=== PATIENT | female | born 1980 | race American Indian/Alaskan Native ===

== ENCOUNTER 2021-12-04 14:24 | Emergency (ER) | payer SELFPAY ==
--- NOTE | 2021-12-04 14:33 | EDM.PDOC ---
ED HPI GENERAL MEDICAL PROBLEM - General Chief Complaint: Diabetic Complaint Stated Complaint: AMBULANCE Time Seen by Provider: 12/04/21 14:33 Source of Information: Reports: Patient, EMS, RN, RN Notes Reviewed History Limitations: Reports: No Limitations - History of Present Illness INITIAL COMMENTS - FREE TEXT/NARRATIVE: Pt presents to ED via [facility] with c/o high blood sugars with Hx of uncontrolled DM which was untreated x8 years. Pt reports increased fatigue and dry mouth. Pt is currently in an inpatient drug treatment center. She went to [facility] 12/02/21 for a physical and to have her medications restarted. Pt states that she has become increasingly tired throughout the day. She c/o hand and foot pain due to her diabetic neuropathy. Pt claims her blood sugar was 495 earlier today. Pt admits she hasn't checked her blood sugars for 8 years. Onset: Unknown/Unsure Duration: Chronic Location: Reports: Generalized Quality: Reports: Same as Previous Episode Severity: Severe Improves with: Reports: None Worsens with: Reports: None Associated Symptoms: Reports: No Other Symptoms - Related Data Allergies Allergy/AdvReac Type Severity Reaction Status Date / Time acetaminophen Allergy Cannot Verified 12/04/21 14:43 [From Tylenol-Codeine] Remember codeine Allergy Cannot Verified 12/04/21 14:43 [From Tylenol-Codeine] Remember cyclobenzaprine Allergy Cannot Verified 12/04/21 14:43 Remember ibuprofen Allergy Cannot Verified 12/04/21 14:43 Remember ketorolac [From Toradol] Allergy Cannot Verified 12/04/21 14:43 Remember tramadol Allergy Cannot Verified 12/04/21 14:43 Remember Home Meds: Home Meds Empagliflozin [Jardiance] 12/04/21 [History] Insulin Aspart [NovoLOG] 300 unit .XX 12/04/21 [History] Insulin Detemir [Levemir Flextouch] 12/04/21 [History] Melatonin 5 mg PO 12/04/21 [History] Multivitamin with Iron [Multivitamins with Iron] 12/04/21 [History] Propranolol [Inderal] 12/04/21 [History] Simvastatin 12/04/21 [History] buPROPion HCL [Bupropion HCl Sr] 12/04/21 [History] lisinopriL [Lisinopril] 12/04/21 [History] metFORMIN [Glucophage XR] 12/04/21 [History] Past Medical History Cardiovascular History: Reports: Hypertension Psychiatric History: Reports: Addiction Endocrine/Metabolic History: Reports: Diabetes, Type II, Obesity/BMI 30+ Social & Family History - Family History Family Medical History: Unobtainable - Living Situation & Occupation Living situation: Reports: Other (In substance treatment program as of 12/04/21.) ED ROS GENERAL - Review of Systems Review Of Systems: Comprehensive ROS is negative, except as noted in HPI. ED EXAM GENERAL NO PERIP PULSE - Physical Exam Exam: See Below Exam Limited By: No Limitations General Appearance: Alert, WD/WN, No Apparent Distress, Obese Eye Exam: Bilateral Eye: Normal Inspection Nose: Normal Inspection Throat/Mouth: Normal Lips, Normal Voice, No Airway Compromise Head: Atraumatic, Normocephalic Neck: Normal Inspection Respiratory/Chest: No Respiratory Distress, Lungs Clear, Normal Breath Sounds, No Accessory Muscle Use, Chest Non-Tender Cardiovascular: Regular Rate, Rhythm GI/Abdominal: Normal Bowel Sounds, Soft, Non-Tender Back Exam: Normal Inspection Extremities: Normal Inspection Neurological: Alert, Oriented, No Motor/Sensory Deficits Psychiatric: Normal Mood Skin Exam: Warm, Dry, Intact, Normal Color, No Rash Course - Vital Signs Last Recorded V/S: Last Vital Signs Temp 97.9 F 12/04/21 14:55 Pulse 89 12/04/21 14:55 Resp 20 12/04/21 14:55 BP 128/90 12/04/21 14:55 Pulse Ox 97 12/04/21 14:55 - Orders/Labs/Meds Orders: Active Orders 24 hr Category Date Time Status Blood Glucose Check, Bedside [RC] ONETIME Care 12/04/21 14:33 Active Dextrose 50% in Water Med 12/04/21 15:34 Active 50 ml IVPUSH Q15M PRN Glucagon,Human Recombinant [GlucaGen] Med 12/04/21 15:34 Active 1 mg IM Q15M PRN Medication Orders Dextrose/Water (50% Dextrose In Water 50 Ml Syringe) 50 ml IVPUSH Q15M PRN PRN Reason: Hypoglycemia Glucagon (Glucagon,Human Recombinant 1 Mg Vial) 1 mg IM Q15M PRN PRN Reason: Hypoglycemia Labs: Laboratory Tests 12/04/21 12/04/21 12/04/21 Range/Units 14:40 14:40 14:40 WBC (5.0-10.0) 10^3/uL RBC (4.2-5.4) 10^6/uL Hgb (12.0-16.0) g/dL Hct (37.0-47.0) % MCV (80-100) fL MCH (27.0-34.0) pg MCHC (33.0-35.0) g/dL Plt Count (150-450) 10^3/uL Neut % (Auto) (42.2-75.2) % Lymph % (Auto) (20.5-50.1) % [place] % (Auto) (2-8) % Eos % (Auto) (1.0-3.0) % Baso % (Auto) (0.0-1.0) % VBG pH (7.31-7.41) VBG pCO2 (41-51) mmHg VBG pO2 (35-42) mmHg VBG HCO3 (19-25) mmol/l VBG O2 Saturation (60-80) % VBG Base Excess ((-2)-(+3)) mmol/l O2 Delivery Device Sodium (136-145) mmol/L Potassium (3.5-5.1) mmol/L Chloride (98-107) mmol/L Carbon Dioxide (21-32) mmol/L Anion Gap (7-13) mEq/L BUN (7-18) mg/dL Creatinine (0.55-1.02) mg/dL Est Cr Clr Drug Dosing mL/min Estimated GFR (MDRD) BUN/Creatinine Ratio (No establ ref range) Glucose (70-99) mg/dL POC Glucose (70-99) mg/dL Hemoglobin A1c (<5.7) % Calcium (8.5-10.1) mg/dL Total Bilirubin (0.2-1.0) mg/dL AST (15-37) U/L ALT (14-59) U/L Alkaline Phosphatase (46-116) U/L Total Protein (6.4-8.2) g/dL Albumin (3.4-5.0) g/dL Globulin Albumin/Globulin Ratio Urine Color Yellow (YELLOW) Urine Appearance Clear (CLEAR) Urine pH 6.0 (5.0-9.0) Ur Specific [place] 1.015 (1.005-1.030) Urine Protein Negative (NEGATIVE) Urine Glucose (UA) 500 H (NEGATIVE) Urine Ketones Negative (NEGATIVE) Urine Occult Blood Negative (NEGATIVE) Urine Nitrite Negative (NEGATIVE) Urine Bilirubin Negative (NEGATIVE) Urine Urobilinogen 0.2 (0.2-1.0) mg/dL Ur Leukocyte Esterase Negative (NEGATIVE) Urine HCG, Qual Negative Urine Opiates Screen Negative (NEGATIVE) Ur Oxycodone Screen Negative (NEGATIVE) Urine Methadone Screen Negative (NEGATIVE) Ur Barbiturates Screen Negative (NEGATIVE) U Tricyclic Antidepress Negative (NEGATIVE) Ur Phencyclidine Scrn Negative (NEGATIVE) Ur Amphetamine Screen Negative (NEGATIVE) U Methamphetamines Scrn Negative (NEGATIVE) Urine MDMA Screen Negative (NEGATIVE) U Benzodiazepines Scrn Negative (NEGATIVE) Urine Cocaine Screen Negative (NEGATIVE) U Marijuana (THC) Screen Positive H (NEGATIVE) Ethyl Alcohol (0) mg/dL Ketones 12/04/21 12/04/21 12/04/21 Range/Units 14:43 14:59 14:59 WBC 8.6 (5.0-10.0) 10^3/uL RBC 5.33 (4.2-5.4) 10^6/uL Hgb 14.1 (12.0-16.0) g/dL Hct 44.0 (37.0-47.0) % MCV 82.6 (80-100) fL MCH 26.5 L (27.0-34.0) pg MCHC 32.0 L (33.0-35.0) g/dL Plt Count 352 (150-450) 10^3/uL Neut % (Auto) 69.3 (42.2-75.2) % Lymph % (Auto) 24.8 (20.5-50.1) % [place] % (Auto) 4.9 (2-8) % Eos % (Auto) 0.8 L (1.0-3.0) % Baso % (Auto) 0.2 (0.0-1.0) % VBG pH 7.41 (7.31-7.41) VBG pCO2 43 (41-51) mmHg VBG pO2 34 L (35-42) mmHg VBG HCO3 27 H (19-25) mmol/l VBG O2 Saturation 61 (60-80) % VBG Base Excess 2.2 ((-2)-(+3)) mmol/l O2 Delivery Device Room air Sodium 138 (136-145) mmol/L Potassium 4.1 (3.5-5.1) mmol/L Chloride 100 (98-107) mmol/L Carbon Dioxide 27 (21-32) mmol/L Anion Gap 15.1 H (7-13) mEq/L BUN 12 (7-18) mg/dL Creatinine 0.74 (0.55-1.02) mg/dL Est Cr Clr Drug Dosing 98.27 mL/min Estimated GFR (MDRD) > 60 BUN/Creatinine Ratio 16.2 (No establ ref range) Glucose 417 H* (70-99) mg/dL POC Glucose (70-99) mg/dL Hemoglobin A1c (<5.7) % Calcium 8.4 L (8.5-10.1) mg/dL Total Bilirubin 0.2 (0.2-1.0) mg/dL AST 5 L (15-37) U/L ALT 21 (14-59) U/L Alkaline Phosphatase 164 H (46-116) U/L Total Protein 7.8 (6.4-8.2) g/dL Albumin 3.3 L (3.4-5.0) g/dL Globulin 4.5 Albumin/Globulin Ratio 0.73 Urine Color (YELLOW) Urine Appearance (CLEAR) Urine pH (5.0-9.0) Ur Specific [place] (1.005-1.030) Urine Protein (NEGATIVE) Urine Glucose (UA) (NEGATIVE) Urine Ketones (NEGATIVE) Urine Occult Blood (NEGATIVE) Urine Nitrite (NEGATIVE) Urine Bilirubin (NEGATIVE) Urine Urobilinogen (0.2-1.0) mg/dL Ur Leukocyte Esterase (NEGATIVE) Urine HCG, Qual Urine Opiates Screen (NEGATIVE) Ur Oxycodone Screen (NEGATIVE) Urine Methadone Screen (NEGATIVE) Ur Barbiturates Screen (NEGATIVE) U Tricyclic Antidepress (NEGATIVE) Ur Phencyclidine Scrn (NEGATIVE) Ur Amphetamine Screen (NEGATIVE) U Methamphetamines Scrn (NEGATIVE) Urine MDMA Screen (NEGATIVE) U Benzodiazepines Scrn (NEGATIVE) Urine Cocaine Screen (NEGATIVE) U Marijuana (THC) Screen (NEGATIVE) Ethyl Alcohol < 3 (0) mg/dL Ketones Negative 12/04/21 12/04/21 Range/Units 14:59 15:08 WBC (5.0-10.0) 10^3/uL RBC (4.2-5.4) 10^6/uL Hgb (12.0-16.0) g/dL Hct (37.0-47.0) % MCV (80-100) fL MCH (27.0-34.0) pg MCHC (33.0-35.0) g/dL Plt Count (150-450) 10^3/uL Neut % (Auto) (42.2-75.2) % Lymph % (Auto) (20.5-50.1) % [place] % (Auto) (2-8) % Eos % (Auto) (1.0-3.0) % Baso % (Auto) (0.0-1.0) % VBG pH (7.31-7.41) VBG pCO2 (41-51) mmHg VBG pO2 (35-42) mmHg VBG HCO3 (19-25) mmol/l VBG O2 Saturation (60-80) % VBG Base Excess ((-2)-(+3)) mmol/l O2 Delivery Device Sodium (136-145) mmol/L Potassium (3.5-5.1) mmol/L Chloride (98-107) mmol/L Carbon Dioxide (21-32) mmol/L Anion Gap (7-13) mEq/L BUN (7-18) mg/dL Creatinine (0.55-1.02) mg/dL Est Cr Clr Drug Dosing mL/min Estimated GFR (MDRD) BUN/Creatinine Ratio (No establ ref range) Glucose (70-99) mg/dL POC Glucose 395 H (70-99) mg/dL Hemoglobin A1c 12.3 H (<5.7) % Calcium (8.5-10.1) mg/dL Total Bilirubin (0.2-1.0) mg/dL AST (15-37) U/L ALT (14-59) U/L Alkaline Phosphatase (46-116) U/L Total Protein (6.4-8.2) g/dL Albumin (3.4-5.0) g/dL Globulin Albumin/Globulin Ratio Urine Color (YELLOW) Urine Appearance (CLEAR) Urine pH (5.0-9.0) Ur Specific [place] (1.005-1.030) Urine Protein (NEGATIVE) Urine Glucose (UA) (NEGATIVE) Urine Ketones (NEGATIVE) Urine Occult Blood (NEGATIVE) Urine Nitrite (NEGATIVE) Urine Bilirubin (NEGATIVE) Urine Urobilinogen (0.2-1.0) mg/dL Ur Leukocyte Esterase (NEGATIVE) Urine HCG, Qual Urine Opiates Screen (NEGATIVE) Ur Oxycodone Screen (NEGATIVE) Urine Methadone Screen (NEGATIVE) Ur Barbiturates Screen (NEGATIVE) U Tricyclic Antidepress (NEGATIVE) Ur Phencyclidine Scrn (NEGATIVE) Ur Amphetamine Screen (NEGATIVE) U Methamphetamines Scrn (NEGATIVE) Urine MDMA Screen (NEGATIVE) U Benzodiazepines Scrn (NEGATIVE) Urine Cocaine Screen (NEGATIVE) U Marijuana (THC) Screen (NEGATIVE) Ethyl Alcohol (0) mg/dL Ketones Meds: Medications Generic Name Dose Route Start Last Admin Trade Name Freq PRN Reason Stop Dose Admin Dextrose/Water 50 ml 12/04/21 15:34 50% Dextrose In Water 50 Ml Syringe IVPUSH Q15M PRN Hypoglycemia Glucagon 1 mg 12/04/21 15:34 Glucagon,Human Recombinant 1 Mg Vial IM Q15M PRN Hypoglycemia Discontinued Medications Generic Name Dose Route Start Last Admin Trade Name Freq PRN Reason Stop Dose Admin Insulin Human Regular 10 unit 12/04/21 15:34 Insulin Regular, Human 100 Units/Ml 3 Ml Vial SUBCUT 12/04/21 15:35 ONETIME ONE - Re-Assessments/Exams Free Text/Narrative Re-Assessment/Exam: 12/04/21 15:41 Pt receives Insulin Reg. 10U SQ, then states she is leaving to go back to rehab because she isn't getting anything for her pain. Of note, the pt did not initially present with c/o pain. She did later mention that she has peripheral neuropathy. She also claims to be allergic to all non-narcotic pain medications. Departure - Departure Time of Disposition: 15:44 (d/c back to rehab unit) Disposition: Home, Self-Care 01 Condition: Fair Clinical Impression: Diabetic peripheral neuropathy Uncontrolled type 2 diabetes mellitus Qualifiers: Glycemic state: with hyperglycemia Qualified Code(s): E11.65 - Type 2 diabetes mellitus with hyperglycemia - Discharge Information *PRESCRIPTION DRUG MONITORING PROGRAM REVIEWED*: Not Applicable *COPY OF PRESCRIPTION DRUG MONITORING REPORT IN PATIENT ZANA: Not Applicable Instructions: Type 2 Diabetes Mellitus, Self-Care, Adult, Diabetic Neuropathy, Hyperglycemia, [id number] Forms: ED Department Discharge Additional Instructions: Take your insulin and all other medications exactly as prescribed. Follow up at [facility] in one week for diabetic management. Continue with rehabilitation as planned. Sepsis Event Note (ED) - Focused Exam Vital Signs: Vital Signs Temp Pulse Resp BP Pulse Ox 12/04/21 14:55 97.9 F 89 20 128/90 97 - My Orders Last 24 Hours: My Active Orders 12/04/21 14:33 Blood Glucose Check, Bedside [RC] ONETIME 12/04/21 15:34 Dextrose 50% in Water 50 ml IVPUSH Q15M PRN Glucagon,Human Recombinant [GlucaGen] 1 mg IM Q15M PRN - Assessment/Plan Last 24 Hours: My Active Orders 12/04/21 14:33 Blood Glucose Check, Bedside [RC] ONETIME 12/04/21 15:34 Dextrose 50% in Water 50 ml IVPUSH Q15M PRN Glucagon,Human Recombinant [GlucaGen] 1 mg IM Q15M PRN
[2021-12-04 15:07] LABS: BASE EXCESS VENOUS 2.2 mmol/l ((-2)-(+3)); BICARBONATE,VENOUS 27 mmol/l (19-25); O2 DELIVERY DEVICE ROOM AIR; O2 SATURATION VENOUS 61 % (60-80); PCO2 VENOUS 43 mmHg (41-51); PH,VENOUS 7.41 (7.31-7.41); PO2 VENOUS 34 mmHg (35-42)
[2021-12-04 15:27] LABS: HEMOGLOBIN A1C 12.3 % (<5.7)
[2021-12-04 15:28] LABS: ANION GAP 15.1 mEq/L (7-13); CHLORIDE,CL 100 mmol/L (98-107); SODIUM,NA 138 mmol/L (136-145)
[2021-12-04] MEDS ORDERED: 50% Dextrose in Water 50 ML Syringe IVPUSH PRN (15:34)
[2021-12-04] MEDS ORDERED: Glucagon,Human Recombinant 1 MG Vial IM PRN (15:34)
[2021-12-04] MEDS ORDERED: Insulin Regular, Human 100 Units/ML 3 ML Vial SUBCUT ONE (15:34)
[2021-12-04 15:35] LABS: AMPHETAMINES,URINE NEGATIVE (NEGATIVE); BARBITURATES,URINE NEGATIVE (NEGATIVE); BENZODIAZEPINE,URINE NEGATIVE (NEGATIVE); MDMA (ECSTASY), URINE NEGATIVE (NEGATIVE); METHADONE,URINE NEGATIVE (NEGATIVE); METHAMPHETAMINES,URINE NEGATIVE (NEGATIVE); OPIATES,URINE NEGATIVE (NEGATIVE); OXYCODONE,URINE NEGATIVE (NEGATIVE); PHENCYCLIDINE,URINE NEGATIVE (NEGATIVE); TCA,URINE NEGATIVE (NEGATIVE)
== END 2021-12-04 15:44 | disposition home or self-care (01) ==
LOC: DL.ED 14:24
DX: E11.65 Type 2 diabetes mellitus with hyperglycemia (principal); E11.42 Type 2 diabetes mellitus with diabetic polyneuropathy; I10 Essential (primary) hypertension; E66.9 Obesity, unspecified; Z68.31 Body mass index [BMI] 31.0-31.9, adult; Z88.5 Allergy status to narcotic agent; Z88.8 Allergy status to other drugs, medicaments and biological substances; Z79.4 Long term (current) use of insulin
CPT/HCPCS: 36415; 80053; 80305; 80307; 81003; 81025; 82009; 82803; 82947; 83036; 85025; 99285; J1815

== ENCOUNTER 2021-12-08 20:16 | Emergency (ER) | payer SELFPAY | END 2021-12-08 21:57 | disposition left against medical advice (07) | LOC: DL.ED 20:16 | DX: Z53.21 Procedure and treatment not carried out due to patient leaving prior to being seen by health care provider (principal) ==

== ENCOUNTER 2021-12-24 21:04 | Emergency (ER) | payer SELFPAY | END 2021-12-24 22:00 | disposition home or self-care (01) | LOC: DL.ED 21:04 | DX: R07.81 Pleurodynia (principal); I10 Essential (primary) hypertension; E11.9 Type 2 diabetes mellitus without complications; E66.9 Obesity, unspecified; Z68.31 Body mass index [BMI] 31.0-31.9, adult; Z88.5 Allergy status to narcotic agent; Z88.8 Allergy status to other drugs, medicaments and biological substances; Z79.4 Long term (current) use of insulin; Z79.899 Other long term (current) drug therapy | CPT/HCPCS: 71101-RT; 99283-25 ==

== ENCOUNTER 2022-04-05 13:02 | Inpatient (IN) | payer BC, MEDICAID ==
[2022-04-05] MEDS: Sodium Chloride 0.9% 10 ML Syringe FLUSH PRN ×2 (14:10→14:56)
[2022-04-05 14:24] LABS: ANION GAP 15.8 mEq/L (7-13); CHLORIDE,CL 98 mmol/L (98-107); SODIUM,NA 133 mmol/L (136-145)
[2022-04-05 14:29] LABS: MDMA (ECSTASY), URINE NEGATIVE (NEGATIVE); METHAMPHETAMINES,URINE POSITIVE (NEGATIVE)
[2022-04-05 14:30] LABS: AMPHETAMINES,URINE POSITIVE (NEGATIVE); BARBITURATES,URINE NEGATIVE (NEGATIVE); BENZODIAZEPINE,URINE NEGATIVE (NEGATIVE); METHADONE,URINE NEGATIVE (NEGATIVE); OPIATES,URINE NEGATIVE (NEGATIVE); OXYCODONE,URINE NEGATIVE (NEGATIVE); PHENCYCLIDINE,URINE NEGATIVE (NEGATIVE); TCA,URINE NEGATIVE (NEGATIVE)
[2022-04-05] MEDS ORDERED: Sodium Chloride 0.9% 1,000 ML IV ONE ×2 (14:32→16:45)
[2022-04-05] MEDS ORDERED: Iopamidol 612 MG/ML 100 ML Bottle IVPUSH ONE (14:42)
[2022-04-05 17:04] LABS: CORONAVIRUS COVID-19 NAA NEGATIVE (NEGATIVE)
[2022-04-05] MEDS ORDERED: Ketorolac 30 MG/ML SDV IVPUSH ONE (17:40)
[2022-04-05] MEDS ORDERED: Piperacillin/Tazobactam 3.375 GM in Sodium Chloride 0.9% 100 ML IV ONE (17:51)
[2022-04-05] MEDS ORDERED: Bisacodyl 5 MG Tab PO PRN (19:50)
[2022-04-05] MEDS ORDERED: HYDROmorphone 0.5 MG/0.5 ML Syringe IVPUSH PRN (19:50)
[2022-04-05] MEDS ORDERED: Polyethylene Glycol 3350 Powder 17 GM Packet PO PRN (19:50)
[2022-04-05] MEDS ORDERED: Docusate Sodium 100 MG Cap PO PRN (19:50)
[2022-04-05] MEDS ORDERED: Ibuprofen 600 MG Tab PO PRN (19:50)
[2022-04-05] MEDS ORDERED: Zolpidem 5 MG Tab PO PRN (19:50)
[2022-04-05] MEDS ORDERED: Magnesium Hydroxide 400 MG/5 ML Susp 30 ML Cup PO PRN (19:50)
[2022-04-05] MEDS ORDERED: guaiFENesin/Dextromethorphan 100-10 MG/5 ML Soln 5 ML Cup PO PRN (19:56)
[2022-04-05] MEDS ORDERED: hydrALAZINE 20 MG/ML SDV IVPUSH PRN (20:12)
[2022-04-05] MEDS ORDERED: Metoprolol Tartrate 5 MG/5 ML SDV IVPUSH PRN (20:12)
[2022-04-05] MEDS: Ondansetron 4 MG/2 ML SDV IVPUSH PRN (20:19)
[2022-04-05] MEDS ORDERED: LORazepam 2 MG/ML SDV IVPUSH PRN (20:27)
[2022-04-05] MEDS ORDERED: Flumazenil 0.1 MG/ML 5 ML MDV IVPUSH PRN (20:27)
[2022-04-05] MEDS: HYDROmorphone 0.5 MG/0.5 ML Syringe IVPUSH PRN (20:59)
[2022-04-05] MEDS: Gabapentin 400 MG Cap PO SCH (21:03)
[2022-04-05] MEDS ORDERED: 50% Dextrose in Water 50 ML Syringe IVPUSH PRN (21:56)
[2022-04-05] MEDS ORDERED: Glucagon,Human Recombinant 1 MG Vial IM PRN (21:56)
[2022-04-05] MEDS: Ketorolac 30 MG/ML SDV IVPUSH PRN (23:42)
[2022-04-05] MEDS: Piperacillin/Tazobactam 3.375 GM in Sodium Chloride 0.9% 100 ML IV SCH (23:42)
[2022-04-05] MEDS ORDERED: Sodium Chloride 0.9% 1,000 ML IV SCH (23:59)
[2022-04-06] MEDS: Ondansetron 4 MG/2 ML SDV IVPUSH PRN (03:39)
[2022-04-06] MEDS: HYDROmorphone 0.5 MG/0.5 ML Syringe IVPUSH PRN ×4 (03:42→17:43)
[2022-04-06] MEDS: Piperacillin/Tazobactam 3.375 GM in Sodium Chloride 0.9% 100 ML IV SCH ×4 (06:41→23:48)
[2022-04-06 07:13] LABS: ANION GAP 11.6 mEq/L (7-13); CHLORIDE,CL 105 mmol/L (98-107); SODIUM,NA 138 mmol/L (136-145)
[2022-04-06] MEDS ORDERED: BUPROPION HCL 200 MG PO SCH (09:00)
[2022-04-06] MEDS: Gabapentin 400 MG Cap PO SCH ×3 (09:25→20:43)
[2022-04-06] MEDS: Enoxaparin 40 MG/0.4 ML Syringe SUBCUT SCH (09:25)
[2022-04-06] MEDS: Multivitamin Tab PO SCH (09:25)
[2022-04-06] MEDS: Propranolol 10 MG Tab PO SCH (09:26)
[2022-04-06] MEDS: Insulin Lispro 100 Units/ML 3 ML Vial SUBCUT SCH ×3 (09:35→17:50)
[2022-04-06] MEDS ORDERED: [UNRECOGNIZED DRUG - REMARK] PO PRN (09:38)
[2022-04-06] MEDS: Ketorolac 30 MG/ML SDV IVPUSH PRN ×2 (11:14→20:50)
[2022-04-06] MEDS ORDERED: QUEtiapine 25 MG Tab PO PRN (19:23)
[2022-04-06] MEDS ORDERED: Ziprasidone Mesylate 20 MG Vial IM PRN (19:26)
[2022-04-06] MEDS: metroNIDAZOLE 250 MG Tab PO SCH (20:43)
[2022-04-06] MEDS: Albuterol/Ipratropium 3.0-0.5 MG/3 ML Neb Soln NEB PRN (20:44)
[2022-04-06] MEDS: Sodium Chloride 0.9% 10 ML Syringe FLUSH PRN ×2 (20:47→23:49)
[2022-04-06] MEDS: diphenhydrAMINE 50 MG/ML SDV IVPUSH PRN (20:52)
[2022-04-07] MEDS: Piperacillin/Tazobactam 3.375 GM in Sodium Chloride 0.9% 100 ML IV SCH ×3 (05:04→17:25)
[2022-04-07] MEDS: Sodium Chloride 0.9% 10 ML Syringe FLUSH PRN (05:05)
[2022-04-07] MEDS: Ketorolac 30 MG/ML SDV IVPUSH PRN ×2 (08:54→17:52)
[2022-04-07] MEDS: Gabapentin 400 MG Cap PO SCH ×3 (08:57→20:11)
[2022-04-07] MEDS: metroNIDAZOLE 250 MG Tab PO SCH ×2 (08:57→20:45)
[2022-04-07] MEDS: Multivitamin Tab PO SCH (08:57)
[2022-04-07] MEDS: Propranolol 10 MG Tab PO SCH (08:57)
[2022-04-07] MEDS: Enoxaparin 40 MG/0.4 ML Syringe SUBCUT SCH (09:01)
[2022-04-07] MEDS: Insulin Lispro 100 Units/ML 3 ML Vial SUBCUT SCH ×3 (09:06→17:27)
[2022-04-07] MEDS: Albuterol/Ipratropium 3.0-0.5 MG/3 ML Neb Soln NEB PRN (12:40)
[2022-04-07] MEDS ORDERED: Melatonin 3 MG Tab PO PRN (18:42)
[2022-04-07] MEDS ORDERED: Insulin Glarg,Human.Rec.Analog 100 Unit/ML SUBCUT SCH (21:00)
[2022-04-07] MEDS: diphenhydrAMINE 50 MG/ML SDV IVPUSH PRN (21:08)
[2022-04-08] MEDS: Piperacillin/Tazobactam 3.375 GM in Sodium Chloride 0.9% 100 ML IV SCH ×3 (00:43→06:27)
[2022-04-08] MEDS: Ketorolac 30 MG/ML SDV IVPUSH PRN (00:45)
[2022-04-08 07:45] LABS: ANION GAP 14.1 mEq/L (7-13)
[2022-04-08] MEDS: Enoxaparin 40 MG/0.4 ML Syringe SUBCUT SCH (08:15)
[2022-04-08] MEDS: Propranolol 10 MG Tab PO SCH (08:16)
[2022-04-08] MEDS: Gabapentin 400 MG Cap PO SCH (08:16)
[2022-04-08] MEDS: metroNIDAZOLE 250 MG Tab PO SCH (08:16)
[2022-04-08] MEDS: Multivitamin Tab PO SCH (08:16)
[2022-04-08] MEDS: Insulin Lispro 100 Units/ML 3 ML Vial SUBCUT SCH (08:19)
[2022-04-08] MEDS ORDERED: Non-Formulary Medication 1 Each (Empagliflozin [Jardiance] 10 MG Tablet) PO SCH (09:00)
[2022-04-08] MEDS ORDERED: Simvastatin 10 MG Tab PO SCH (09:00)
[2022-04-08] MEDS ORDERED: buPROPion 150 MG Tab.ER PO SCH (09:00)
[2022-04-08] MEDS ORDERED: Levofloxacin 250 MG Tab PO ONE (09:49)
[2022-04-08] MEDS: Albuterol/Ipratropium 3.0-0.5 MG/3 ML Neb Soln NEB PRN (10:16)
== END 2022-04-08 10:15 | disposition home or self-care (01) | DRG 720 ==
LOC: DL.ED 13:02 → DL.MS 18:06
PROVIDERS: ADMIT Internal Medicine; ATTEND Internal Medicine
DX: A41.9 Sepsis, unspecified organism (principal); J18.9 Pneumonia, unspecified organism; N76.0 Acute vaginitis; E11.65 Type 2 diabetes mellitus with hyperglycemia; E66.9 Obesity, unspecified; F15.10 Other stimulant abuse, uncomplicated; Z20.822 Contact with and (suspected) exposure to COVID-19; F12.10 Cannabis abuse, uncomplicated; M54.50 Low back pain, unspecified; N28.1 Cyst of kidney, acquired; E87.1 Hypo-osmolality and hyponatremia; E87.2 Acidosis; R74.01 Elevation of levels of liver transaminase levels; B19.20 Unspecified viral hepatitis C without hepatic coma; E11.42 Type 2 diabetes mellitus with diabetic polyneuropathy; F41.9 Anxiety disorder, unspecified; F17.210 Nicotine dependence, cigarettes, uncomplicated; I10 Essential (primary) hypertension; J98.11 Atelectasis; G40.909 Epilepsy, unspecified, not intractable, without status epilepticus; R33.9 Retention of urine, unspecified; Z88.6 Allergy status to analgesic agent; Z68.31 Body mass index [BMI] 31.0-31.9, adult; Z79.4 Long term (current) use of insulin
CPT/HCPCS: 0240U; 36415; 71045; 74177; 76705; 80053; 80074; 80202; 80305-QW; 80307; 81001; 82947; 82977; 83605; 83615; 83735; 85025; 85651; 86140; 87040; 87081; 87210; 94640; 96374; 96375; 99284; 99285-25; A9270-GY; J1170; J1200; J1650; J1815-GY; J1885; J2405; J2543; J3370; J3486; J3490; J7030; J7050; J7620-GY; Q9967

== ENCOUNTER 2022-07-28 11:42 | Emergency (ER) | payer BC ==
[2022-07-28 12:26] LABS: AMPHETAMINES,URINE POSITIVE (NEGATIVE); BARBITURATES,URINE NEGATIVE (NEGATIVE); BENZODIAZEPINE,URINE NEGATIVE (NEGATIVE); MDMA (ECSTASY), URINE NEGATIVE (NEGATIVE); METHADONE,URINE NEGATIVE (NEGATIVE); METHAMPHETAMINES,URINE POSITIVE (NEGATIVE); OPIATES,URINE NEGATIVE (NEGATIVE); OXYCODONE,URINE NEGATIVE (NEGATIVE); PHENCYCLIDINE,URINE NEGATIVE (NEGATIVE); TCA,URINE NEGATIVE (NEGATIVE)
[2022-07-28 12:55] LABS: ANION GAP 14.4 mEq/L (7-13); CHLORIDE,CL 106 mmol/L (98-107); SODIUM,NA 142 mmol/L (136-145)
[2022-07-28 12:58] LABS: ESTIMATED GFR 108 mL/min (>=60)
== END 2022-07-28 14:27 | disposition home or self-care (01) ==
LOC: DL.ED 11:42
DX: F32.A Depression, unspecified (principal); I10 Essential (primary) hypertension; E11.9 Type 2 diabetes mellitus without complications; E66.9 Obesity, unspecified; F17.210 Nicotine dependence, cigarettes, uncomplicated; Z68.30 Body mass index [BMI] 30.0-30.9, adult; Z88.8 Allergy status to other drugs, medicaments and biological substances
CPT/HCPCS: 36415; 70450; 72125; 80053; 80305-QW; 80307; 81025; 85025; 99284; 99285

== ENCOUNTER 2022-08-31 10:18 | Emergency (ER) | payer BC, MEDICAID | END 2022-08-31 10:20 | disposition left against medical advice (07) | LOC: DL.ED 10:18 | DX: Z53.21 Procedure and treatment not carried out due to patient leaving prior to being seen by health care provider (principal) ==

== ENCOUNTER 2022-12-20 08:09 | Emergency (ER) | payer MEDICAID | END 2022-12-20 08:59 | disposition home or self-care (01) | LOC: DL.ED 08:09 | DX: M79.672 Pain in left foot (principal); I10 Essential (primary) hypertension; E11.9 Type 2 diabetes mellitus without complications; E66.9 Obesity, unspecified; Z68.33 Body mass index [BMI] 33.0-33.9, adult; Z88.6 Allergy status to analgesic agent; Z79.899 Other long term (current) drug therapy; Z79.4 Long term (current) use of insulin; Z79.84 Long term (current) use of oral hypoglycemic drugs | CPT/HCPCS: 73630-LT; 99283 ==

== ENCOUNTER 2023-01-28 23:54 | Emergency (ER) | payer MEDICAID ==
[2023-01-29] MEDS ORDERED: Cephalexin 500 MG Cap PO ONE (00:11)
[2023-01-29] MEDS ORDERED: Phenazopyridine 95 MG Tab PO ONE (00:12)
[2023-02-01 13:47] LABS: C.TRACHOMATIS BY TMA Negative (Negative); N.GONORRHOEAE BY TMA Negative (Negative)
== END 2023-01-29 00:26 | disposition home or self-care (01) ==
LOC: DL.ED 23:54
DX: N39.0 Urinary tract infection, site not specified (principal); I10 Essential (primary) hypertension; J45.909 Unspecified asthma, uncomplicated; E11.9 Type 2 diabetes mellitus without complications; E66.9 Obesity, unspecified; Z68.34 Body mass index [BMI] 34.0-34.9, adult; Z88.6 Allergy status to analgesic agent; Z79.4 Long term (current) use of insulin; Z79.899 Other long term (current) drug therapy
CPT/HCPCS: 81003; 87491; 87591; 99282; 99283; A9270-GY

== ENCOUNTER 2023-02-20 19:40 | Emergency (ER) | payer MEDICAID ==
[2023-02-20 22:42] LABS: HEMOGLOBIN A1C 9.3 % (<5.7)
[2023-02-20 22:43] LABS: ANION GAP 14.1 mEq/L (7-13)
== END 2023-02-20 23:06 | disposition home or self-care (01) ==
LOC: DL.ED 19:40
DX: E11.65 Type 2 diabetes mellitus with hyperglycemia (principal); I10 Essential (primary) hypertension; J45.909 Unspecified asthma, uncomplicated; E11.40 Type 2 diabetes mellitus with diabetic neuropathy, unspecified; E66.9 Obesity, unspecified; Z68.32 Body mass index [BMI] 32.0-32.9, adult; Z72.0 Tobacco use; Z88.6 Allergy status to analgesic agent; Z88.8 Allergy status to other drugs, medicaments and biological substances; Z88.5 Allergy status to narcotic agent; Z79.4 Long term (current) use of insulin; Z79.899 Other long term (current) drug therapy
CPT/HCPCS: 36415; 80053; 81001; 83036; 83735; 85025; 99283; 99284

== ENCOUNTER 2023-08-30 00:41 | Emergency (ER) | payer MEDICAID ==
[2023-08-30 01:12] LABS: APPEARANCE,URINE SLIGHTLY CLOUDY (CLEAR); BILIRUBIN,URINE NEGATIVE (NEGATIVE); COLOR,URINE YELLOW (YELLOW); GLUCOSE,URINE 250 (NEGATIVE); KETONES,URINE NEGATIVE (NEGATIVE); LEUKOCYTE ESTERASE,URINE LARGE (NEGATIVE); NITRITE,URINE NEGATIVE (NEGATIVE); OCCULT BLOOD,URINE MODERATE (NEGATIVE); PROTEIN,URINE 30 (NEGATIVE); UROBILINOGEN,URINE 0.2 mg/dL (0.2-1.0)
[2023-08-30 01:22] LABS: BACTERIA,URINE FEW /HPF (0-FEW/HPF); EPITHELIAL CELLS,URINE FEW /HPF (NOT SEEN); WBC,URINE 40-50 /HPF (0-5/HPF)
[2023-08-30] MEDS ORDERED: Nitrofurantoin Monohydrate/Macrocrystalline 100 MG Cap PO ONE (01:30)
[2023-08-30] MEDS ORDERED: Phenazopyridine 95 MG Tab PO ONE (01:30)
== END 2023-08-30 01:57 | disposition home or self-care (01) ==
LOC: DL.ED 00:41
DX: N30.01 Acute cystitis with hematuria (principal); I10 Essential (primary) hypertension; J45.909 Unspecified asthma, uncomplicated; E11.40 Type 2 diabetes mellitus with diabetic neuropathy, unspecified; E66.9 Obesity, unspecified; Z68.30 Body mass index [BMI] 30.0-30.9, adult; Z88.6 Allergy status to analgesic agent; Z88.5 Allergy status to narcotic agent; Z88.8 Allergy status to other drugs, medicaments and biological substances; Z79.899 Other long term (current) drug therapy; Z79.4 Long term (current) use of insulin
CPT/HCPCS: 81001; 81025; 87086; 87088; 87186; 99283; A9270

== ENCOUNTER 2023-09-12 07:16 | Emergency (ER) | payer MEDICAID ==
[2023-09-12] MEDS ORDERED: Metoprolol Tartrate 5 MG/5 ML SDV IVPUSH ONE (07:28)
[2023-09-12] MEDS ORDERED: Sodium Chloride 0.9% 10 ML Syringe FLUSH PRN (07:30)
[2023-09-12 07:39] LABS: BASOPHILS PERCENT AUTO 0.2 % (0.0-1.0); HEMATOCRIT 41.8 % (37.0-47.0); HEMOGLOBIN 14.9 g/dL (12.0-16.0); LYMPHOCYTES PERCENT AUTO 17.3 % (20.5-50.1); MEAN CORPUSCULAR HEMOGLOBIN 28.1 pg (27.0-34.0); MEAN CORPUSCULAR HGB CONC 35.6 g/dL (33.0-35.0); MEAN CORPUSCULAR VOLUME 78.7 fL (80-100); MONOCYTES PERCENT AUTO 5.4 % (2-8); NEUTROPHILS PERCENT AUTO 76.1 % (42.2-75.2); PLATELET COUNT,PLT 437 10^3/uL (150-450); RED BLOOD CELL COUNT 5.31 10^6/uL (4.2-5.4); WHITE BLOOD CELL COUNT,WBC 9.6 10^3/uL (5.0-10.0)
[2023-09-12 07:59] LABS: A/G RATIO 0.8; ALBUMIN 3.7 g/dL (3.4-5.0); ANION GAP 14.7 mEq/L (7-13); BILIRUBIN TOTAL 0.9 mg/dL (0.2-1.0); BUN/CREATININE RATIO 16.9 (No establ ref range); CALCIUM 8.8 mg/dL (8.5-10.1); CREATININE 0.71 mg/dL (0.55-1.02); EST CRCL DRUG DOSING (CG) 92.88 mL/min; POTASSIUM,K 3.7 mmol/L (3.5-5.1); PROTEIN TOTAL,TP 8.2 g/dL (6.4-8.2)
[2023-09-12 08:02] LABS: LACTIC ACID 0.7 mmol/L (0.4-2.0)
[2023-09-12] MEDS ORDERED: Codeine/guaiFENesin 10-100 MG/5 ML Syrup 5 ML Cup PO ONE (08:04)
[2023-09-12] MEDS ORDERED: diphenhydrAMINE 25 MG Tab PO ONE (08:10)
[2023-09-12 08:13] LABS: APPEARANCE,URINE CLEAR (CLEAR); BILIRUBIN,URINE NEGATIVE (NEGATIVE); COLOR,URINE YELLOW (YELLOW); GLUCOSE,URINE 100 (NEGATIVE); KETONES,URINE TRACE (NEGATIVE); LEUKOCYTE ESTERASE,URINE NEGATIVE (NEGATIVE); NITRITE,URINE NEGATIVE (NEGATIVE); OCCULT BLOOD,URINE NEGATIVE (NEGATIVE); PH,URINE 6.5 (5.0-9.0); PROTEIN,URINE TRACE (NEGATIVE); UROBILINOGEN,URINE 0.2 mg/dL (0.2-1.0)
[2023-09-12 08:29] LABS: CORONAVIRUS COVID-19 NAA NEGATIVE (NEGATIVE); INFLUENZA A NAA NEGATIVE (NEGATIVE); INFLUENZA B NAA NEGATIVE (NEGATIVE)
[2023-09-12 08:29] LABS: MUCUS,URINE MANY /LPF (NOT SEEN)
[2023-09-12 08:30] LABS: BACTERIA,URINE FEW /HPF (0-FEW/HPF); EPITHELIAL CELLS,URINE MANY /HPF (NOT SEEN); RBC,URINE 0-5 /HPF (0-5); WBC,URINE 0-5 /HPF (0-5/HPF)
== END 2023-09-12 08:59 | disposition home or self-care (01) ==
LOC: DL.ED 07:16
DX: B34.9 Viral infection, unspecified (principal); E78.00 Pure hypercholesterolemia, unspecified; J45.909 Unspecified asthma, uncomplicated; I10 Essential (primary) hypertension; E11.9 Type 2 diabetes mellitus without complications; E66.9 Obesity, unspecified; Z68.31 Body mass index [BMI] 31.0-31.9, adult; Z79.899 Other long term (current) drug therapy; Z79.84 Long term (current) use of oral hypoglycemic drugs; Z79.4 Long term (current) use of insulin; Z88.5 Allergy status to narcotic agent; Z88.6 Allergy status to analgesic agent; Z88.8 Allergy status to other drugs, medicaments and biological substances
CPT/HCPCS: 0240U; 36415; 71045; 80053; 81001; 83605; 85025; 96374; 99284; 99285; A9270; J3490

== ENCOUNTER 2023-12-09 20:45 | Emergency (ER) | payer MEDICAID ==
[2023-12-09 21:18] LABS: BASOPHILS PERCENT AUTO 0.4 % (0.0-1.0); EOSINOPHILS PERCENT AUTO 0.9 % (1.0-3.0); HEMATOCRIT 37.4 % (37.0-47.0); HEMOGLOBIN 11.7 g/dL (12.0-16.0); LYMPHOCYTES PERCENT AUTO 24.7 % (20.5-50.1); MEAN CORPUSCULAR HEMOGLOBIN 24.6 pg (27.0-34.0); MEAN CORPUSCULAR HGB CONC 31.3 g/dL (33.0-35.0); MEAN CORPUSCULAR VOLUME 78.6 fL (80-100); MONOCYTES PERCENT AUTO 6.2 % (2-8); NEUTROPHILS PERCENT AUTO 67.8 % (42.2-75.2); PLATELET COUNT,PLT 448 10^3/uL (150-450); RED BLOOD CELL COUNT 4.76 10^6/uL (4.2-5.4); WHITE BLOOD CELL COUNT,WBC 10.7 10^3/uL (5.0-10.0)
[2023-12-09 21:33] LABS: APPEARANCE,URINE CLEAR (CLEAR); BILIRUBIN,URINE NEGATIVE (NEGATIVE); COLOR,URINE YELLOW (YELLOW); GLUCOSE,URINE 500 (NEGATIVE); KETONES,URINE NEGATIVE (NEGATIVE); LEUKOCYTE ESTERASE,URINE NEGATIVE (NEGATIVE); NITRITE,URINE NEGATIVE (NEGATIVE); OCCULT BLOOD,URINE TRACE-INTACT (NEGATIVE); PH,URINE 6.5 (5.0-9.0); PROTEIN,URINE NEGATIVE (NEGATIVE); UROBILINOGEN,URINE 0.2 mg/dL (0.2-1.0)
[2023-12-09 21:38] LABS: ALANINE AMINOTRANSFERASE,ALT 29 U/L (14-59); ALBUMIN 3.2 g/dL (3.4-5.0); ALKALINE PHOSPHATASE 139 U/L (46-116); ASPARTATE AMNIOTRANSFERASE,AST 9 U/L (15-37); BILIRUBIN TOTAL 0.3 mg/dL (0.2-1.0); BLOOD UREA NITROGEN,BUN 17 mg/dL (7-18); BUN/CREATININE RATIO 17.7 (No establ ref range); CARBON DIOXIDE,CO2 25 mmol/L (21-32); CHLORIDE,CL 99 mmol/L (98-107); CREATININE 0.96 mg/dL (0.55-1.02); PROTEIN TOTAL,TP 7.5 g/dL (6.4-8.2); SODIUM,NA 135 mmol/L (136-145)
[2023-12-09 21:39] LABS: HCG QUALITATIVE,SERUM NEGATIVE (NEGATIVE)
[2023-12-09 21:43] LABS: A/G RATIO 0.74; ESTIMATED GFR 76 mL/min (>=60)
[2023-12-09 21:45] LABS: GLUCOSE RANDOM 502 mg/dL (70-99)
[2023-12-09 21:55] LABS: BACTERIA,URINE FEW /HPF (0-FEW/HPF); EPITHELIAL CELLS,URINE MODERATE /HPF (NOT SEEN); WBC,URINE 0-5 /HPF (0-5/HPF)
[2023-12-09] MEDS ORDERED: Naloxone 2 MG/2 ML Syringe IVPUSH PRN (23:13)
[2023-12-09] MEDS ORDERED: Ondansetron 4 MG/2 ML SDV IVPUSH ONE (23:13)
[2023-12-09] MEDS ORDERED: HYDROmorphone 0.5 MG/0.5 ML Syringe IVPUSH ONE (23:13)
[2023-12-09] MEDS ORDERED: Glucagon,Human Recombinant 1 MG Vial IM PRN (23:14)
[2023-12-09] MEDS ORDERED: Sodium Chloride 0.9% 1,000 ML IV ONE (23:14)
[2023-12-09] MEDS ORDERED: Insulin Regular, Human 100 Units/ML 3 ML Vial IV ONE (23:14)
[2023-12-09] MEDS ORDERED: 50% Dextrose in Water 50 ML Syringe IVPUSH PRN (23:14)
[2023-12-10] MEDS ORDERED: HYDROmorphone 0.5 MG/0.5 ML Syringe IVPUSH ONE ×2 (00:26→00:58)
[2023-12-10] MEDS ORDERED: Naloxone 2 MG/2 ML Syringe IVPUSH PRN (00:58)
== END 2023-12-10 01:43 | disposition home or self-care (01) ==
LOC: DL.ED 20:45
DX: R10.9 Unspecified abdominal pain (principal); R31.29 Other microscopic hematuria; I10 Essential (primary) hypertension; E78.00 Pure hypercholesterolemia, unspecified; E11.42 Type 2 diabetes mellitus with diabetic polyneuropathy; Z79.4 Long term (current) use of insulin; Z79.84 Long term (current) use of oral hypoglycemic drugs; Z79.899 Other long term (current) drug therapy; Z88.5 Allergy status to narcotic agent; Z88.6 Allergy status to analgesic agent; Z88.8 Allergy status to other drugs, medicaments and biological substances
CPT/HCPCS: 36415; 74176; 80053; 81001; 82947; 84703; 85025; 96361; 96374; 96375; 96376; 99284; 99284-25; J1170; J1815-GY; J2405; J7030

== ENCOUNTER 2023-12-13 10:03 | Emergency (ER) | payer BC, MEDICAID | END 2023-12-13 10:44 | disposition home or self-care (01) | LOC: DL.ED 10:03 | DX: K08.89 Other specified disorders of teeth and supporting structures (principal); I10 Essential (primary) hypertension; E78.00 Pure hypercholesterolemia, unspecified; E11.40 Type 2 diabetes mellitus with diabetic neuropathy, unspecified; E66.9 Obesity, unspecified; J45.909 Unspecified asthma, uncomplicated; Z79.84 Long term (current) use of oral hypoglycemic drugs; Z79.4 Long term (current) use of insulin; Z79.899 Other long term (current) drug therapy; Z88.5 Allergy status to narcotic agent; Z88.6 Allergy status to analgesic agent; Z68.32 Body mass index [BMI] 32.0-32.9, adult | CPT/HCPCS: 64400; 99282 ==

== ENCOUNTER 2024-02-20 17:36 | Emergency (ER) | payer MEDICAID | END 2024-02-20 18:48 | LOC: DL.ED 17:36 | DX: Z53.21 Procedure and treatment not carried out due to patient leaving prior to being seen by health care provider (principal) ==

== ENCOUNTER 2024-04-24 19:23 | Emergency (ER) | payer MEDICAID ==
[2024-04-24 21:10] LABS: BASOPHILS PERCENT AUTO 0.2 % (0.0-1.0); EOSINOPHILS PERCENT AUTO 1.9 % (1.0-3.0); HEMATOCRIT 38.3 % (37.0-47.0); HEMOGLOBIN 12.2 g/dL (12.0-16.0); LYMPHOCYTES PERCENT AUTO 31.5 % (20.5-50.1); MEAN CORPUSCULAR HGB CONC 31.9 g/dL (33.0-35.0); MEAN CORPUSCULAR VOLUME 75.4 fL (80-100); MONOCYTES PERCENT AUTO 6.3 % (2-8); NEUTROPHILS PERCENT AUTO 60.1 % (42.2-75.2); PLATELET COUNT,PLT 442 10^3/uL (150-450); RED BLOOD CELL COUNT 5.08 10^6/uL (4.2-5.4); WHITE BLOOD CELL COUNT,WBC 8.5 10^3/uL (5.0-10.0)
[2024-04-24 21:27] LABS: APPEARANCE,URINE CLEAR (CLEAR); BILIRUBIN,URINE NEGATIVE (NEGATIVE); COLOR,URINE YELLOW (YELLOW); GLUCOSE,URINE 100 (NEGATIVE); KETONES,URINE NEGATIVE (NEGATIVE); LEUKOCYTE ESTERASE,URINE NEGATIVE (NEGATIVE); NITRITE,URINE NEGATIVE (NEGATIVE); OCCULT BLOOD,URINE NEGATIVE (NEGATIVE); PROTEIN,URINE NEGATIVE (NEGATIVE); UROBILINOGEN,URINE 0.2 mg/dL (0.2-1.0)
[2024-04-24 21:47] LABS: A/G RATIO 0.8; ALANINE AMINOTRANSFERASE,ALT 28 U/L (14-59); ALBUMIN 3.6 g/dL (3.4-5.0); ALKALINE PHOSPHATASE 115 U/L (46-116); ANION GAP 11.7 mEq/L (7-13); ASPARTATE AMNIOTRANSFERASE,AST 15 U/L (15-37); BILIRUBIN TOTAL 0.5 mg/dL (0.2-1.0); BLOOD UREA NITROGEN,BUN 13 mg/dL (7-18); BUN/CREATININE RATIO 17.3 (No establ ref range); CALCIUM 8.4 mg/dL (8.5-10.1); CARBON DIOXIDE,CO2 27 mmol/L (21-32); CHLORIDE,CL 102 mmol/L (98-107); CREATININE 0.75 mg/dL (0.55-1.02); EST CRCL DRUG DOSING (CG) 87.03 mL/min; GLUCOSE RANDOM 224 mg/dL (70-99); LIPASE 39 U/L (16-77); MAGNESIUM 1.8 mg/dL (1.8-2.4); POTASSIUM,K 3.7 mmol/L (3.5-5.1); PROTEIN TOTAL,TP 7.9 g/dL (6.4-8.2); SODIUM,NA 137 mmol/L (136-145)
[2024-04-24 21:49] LABS: ESTIMATED GFR 101 mL/min (>=60)
[2024-04-24 22:05] LABS: KETONES,BLOOD NEGATIVE
== END 2024-04-24 22:18 | disposition home or self-care (01) ==
LOC: DL.ED 19:23
DX: E11.65 Type 2 diabetes mellitus with hyperglycemia (principal); I10 Essential (primary) hypertension; E78.00 Pure hypercholesterolemia, unspecified; E66.9 Obesity, unspecified; Z68.31 Body mass index [BMI] 31.0-31.9, adult; Z86.16 Personal history of COVID-19; Z90.49 Acquired absence of other specified parts of digestive tract; Z88.8 Allergy status to other drugs, medicaments and biological substances
CPT/HCPCS: 36415; 80053; 81003; 81025; 82009; 82947; 83690; 83735; 85025; 99284

== ENCOUNTER 2024-09-07 22:11 | Emergency (ER) | payer MEDICAID ==
[2024-09-07] MEDS: Sodium Chloride 0.9% 1,000 ML IV ONE (22:36)
[2024-09-07 22:37] LABS: BASOPHILS PERCENT AUTO 0.2 % (0.0-1.0); EOSINOPHILS PERCENT AUTO 1.8 % (1.0-3.0); HEMATOCRIT 38.6 % (37.0-47.0); HEMOGLOBIN 12.1 g/dL (12.0-16.0); LYMPHOCYTES PERCENT AUTO 30.3 % (20.5-50.1); MEAN CORPUSCULAR HEMOGLOBIN 26.2 pg (27.0-34.0); MEAN CORPUSCULAR HGB CONC 31.3 g/dL (33.0-35.0); MEAN CORPUSCULAR VOLUME 83.5 fL (80-100); MONOCYTES PERCENT AUTO 5.8 % (2-8); NEUTROPHILS PERCENT AUTO 61.9 % (42.2-75.2); PLATELET COUNT,PLT 409 10^3/uL (150-450); RED BLOOD CELL COUNT 4.62 10^6/uL (4.2-5.4); WHITE BLOOD CELL COUNT,WBC 9.3 10^3/uL (5.0-10.0)
[2024-09-07 22:37] LABS: APPEARANCE,URINE CLEAR (CLEAR); BILIRUBIN,URINE NEGATIVE (NEGATIVE); COLOR,URINE YELLOW (YELLOW); GLUCOSE,URINE NEGATIVE (NEGATIVE); KETONES,URINE NEGATIVE (NEGATIVE); LEUKOCYTE ESTERASE,URINE NEGATIVE (NEGATIVE); NITRITE,URINE NEGATIVE (NEGATIVE); OCCULT BLOOD,URINE NEGATIVE (NEGATIVE); PH,URINE 5.5 (5.0-9.0); PROTEIN,URINE NEGATIVE (NEGATIVE); UROBILINOGEN,URINE 0.2 mg/dL (0.2-1.0)
[2024-09-07 23:03] LABS: A/G RATIO 0.9; ALANINE AMINOTRANSFERASE,ALT 20 U/L (14-59); ALBUMIN 3.7 g/dL (3.4-5.0); ALKALINE PHOSPHATASE 110 U/L (46-116); ANION GAP 11.9 mEq/L (7-13); ASPARTATE AMNIOTRANSFERASE,AST 12 U/L (15-37); BILIRUBIN TOTAL 0.4 mg/dL (0.2-1.0); BLOOD UREA NITROGEN,BUN 18 mg/dL (7-18); BUN/CREATININE RATIO 21.4 (No establ ref range); CALCIUM 8.9 mg/dL (8.5-10.1); CARBON DIOXIDE,CO2 28 mmol/L (21-32); CHLORIDE,CL 106 mmol/L (98-107); CREATININE 0.84 mg/dL (0.55-1.02); EST CRCL DRUG DOSING (CG) 83.98 mL/min; ESTIMATED GFR 88 mL/min (>=60); GLUCOSE RANDOM 167 mg/dL (70-99); LIPASE 54 U/L (16-77); POTASSIUM,K 3.9 mmol/L (3.5-5.1); SODIUM,NA 142 mmol/L (136-145)
== END 2024-09-08 01:08 | disposition left against medical advice (07) ==
LOC: DL.ED 22:11
DX: R10.9 Unspecified abdominal pain (principal); I10 Essential (primary) hypertension; E78.00 Pure hypercholesterolemia, unspecified; E66.9 Obesity, unspecified; E11.9 Type 2 diabetes mellitus without complications; Z88.5 Allergy status to narcotic agent; Z88.8 Allergy status to other drugs, medicaments and biological substances; Z79.4 Long term (current) use of insulin; Z79.899 Other long term (current) drug therapy; Z86.16 Personal history of COVID-19; Z90.49 Acquired absence of other specified parts of digestive tract; Z90.710 Acquired absence of both cervix and uterus
CPT/HCPCS: 36415; 74176; 80053; 81003; 82947; 83690; 83735; 84484; 85025; 93005; 99284; J7030

== ENCOUNTER 2024-11-15 15:50 | Emergency (ER) | payer MEDICAID | END 2024-11-15 16:42 | disposition home or self-care (01) | LOC: DL.ED 15:50 | DX: R32 Unspecified urinary incontinence (principal); I10 Essential (primary) hypertension; J45.909 Unspecified asthma, uncomplicated; E78.00 Pure hypercholesterolemia, unspecified; E11.42 Type 2 diabetes mellitus with diabetic polyneuropathy; E66.9 Obesity, unspecified; Z90.49 Acquired absence of other specified parts of digestive tract; Z90.710 Acquired absence of both cervix and uterus; Z88.5 Allergy status to narcotic agent; Z88.6 Allergy status to analgesic agent; Z88.8 Allergy status to other drugs, medicaments and biological substances; Z79.4 Long term (current) use of insulin; Z79.84 Long term (current) use of oral hypoglycemic drugs; Z79.899 Other long term (current) drug therapy | CPT/HCPCS: 99283 ==

== ENCOUNTER 2024-12-02 20:42 | Emergency (ER) | payer MEDICAID ==
[2024-12-02] MEDS ORDERED: Sodium Chloride 0.9% 10 ML Syringe FLUSH PRN (21:38)
[2024-12-02 21:55] LABS: BASOPHILS PERCENT AUTO 0.4 % (0.0-1.0); EOSINOPHILS PERCENT AUTO 2.7 % (1.0-3.0); HEMATOCRIT 35.9 % (37.0-47.0); HEMOGLOBIN 11.3 g/dL (12.0-16.0); MEAN CORPUSCULAR HEMOGLOBIN 26.1 pg (27.0-34.0); MEAN CORPUSCULAR HGB CONC 31.5 g/dL (33.0-35.0); MEAN CORPUSCULAR VOLUME 82.9 fL (80-100); MONOCYTES PERCENT AUTO 5.8 % (2-8); NEUTROPHILS PERCENT AUTO 57.1 % (42.2-75.2); PLATELET COUNT,PLT 402 10^3/uL (150-450); RED BLOOD CELL COUNT 4.33 10^6/uL (4.2-5.4); WHITE BLOOD CELL COUNT,WBC 8.1 10^3/uL (5.0-10.0)
[2024-12-02 22:13] LABS: A/G RATIO 0.9; ALBUMIN 3.7 g/dL (3.4-5.0); ANION GAP 13.6 mEq/L (7-13); BILIRUBIN TOTAL 0.5 mg/dL (0.2-1.0); BUN/CREATININE RATIO 18.4 (No establ ref range); CALCIUM 8.6 mg/dL (8.5-10.1); CREATININE 0.76 mg/dL (0.55-1.02); EST CRCL DRUG DOSING (CG) 89.35 mL/min; MAGNESIUM 2.1 mg/dL (1.8-2.4); POTASSIUM,K 3.6 mmol/L (3.5-5.1); PROTEIN TOTAL,TP 7.6 g/dL (6.4-8.2)
== END 2024-12-02 22:42 | disposition home or self-care (01) ==
LOC: DL.ED 20:42
DX: J06.9 Acute upper respiratory infection, unspecified (principal); B97.89 Other viral agents as the cause of diseases classified elsewhere; I10 Essential (primary) hypertension; E78.00 Pure hypercholesterolemia, unspecified; E11.40 Type 2 diabetes mellitus with diabetic neuropathy, unspecified; E66.9 Obesity, unspecified; Z90.49 Acquired absence of other specified parts of digestive tract; Z90.710 Acquired absence of both cervix and uterus; Z79.4 Long term (current) use of insulin; Z79.84 Long term (current) use of oral hypoglycemic drugs; Z79.899 Other long term (current) drug therapy; Z88.5 Allergy status to narcotic agent; Z88.6 Allergy status to analgesic agent; Z88.8 Allergy status to other drugs, medicaments and biological substances; Z68.28 Body mass index [BMI] 28.0-28.9, adult
CPT/HCPCS: 36415; 71046; 80053; 83735; 85025; 87428-QW; 99283

== ENCOUNTER 2024-12-17 11:34 | Emergency (ER) | payer MEDICAID ==
[2024-12-17] MEDS ORDERED: Sodium Chloride 0.9% 10 ML Syringe FLUSH PRN (11:45)
[2024-12-17 11:51] LABS: APPEARANCE,URINE CLEAR (CLEAR); BILIRUBIN,URINE NEGATIVE (NEGATIVE); COLOR,URINE YELLOW (YELLOW); GLUCOSE,URINE NEGATIVE (NEGATIVE); KETONES,URINE NEGATIVE (NEGATIVE); LEUKOCYTE ESTERASE,URINE NEGATIVE (NEGATIVE); NITRITE,URINE NEGATIVE (NEGATIVE); OCCULT BLOOD,URINE TRACE-INTACT (NEGATIVE); PROTEIN,URINE NEGATIVE (NEGATIVE); UROBILINOGEN,URINE 0.2 mg/dL (0.2-1.0)
[2024-12-17 12:04] LABS: EPITHELIAL CELLS,URINE MODERATE /HPF (NOT SEEN); RBC,URINE 0-5 /HPF (0-5); WBC,URINE 0-5 /HPF (0-5/HPF)
[2024-12-17 12:05] LABS: BACTERIA,URINE FEW /HPF (0-FEW/HPF); MUCUS,URINE MODERATE /LPF (NOT SEEN)
[2024-12-17 12:06] LABS: BASOPHILS PERCENT AUTO 0.3 % (0.0-1.0); EOSINOPHILS PERCENT AUTO 1.1 % (1.0-3.0); HEMATOCRIT 39.1 % (37.0-47.0); HEMOGLOBIN 12.1 g/dL (12.0-16.0); LYMPHOCYTES PERCENT AUTO 20.6 % (20.5-50.1); MEAN CORPUSCULAR HEMOGLOBIN 25.6 pg (27.0-34.0); MEAN CORPUSCULAR HGB CONC 30.9 g/dL (33.0-35.0); MEAN CORPUSCULAR VOLUME 82.7 fL (80-100); MONOCYTES PERCENT AUTO 5.8 % (2-8); NEUTROPHILS PERCENT AUTO 72.2 % (42.2-75.2); PLATELET COUNT,PLT 370 10^3/uL (150-450); RED BLOOD CELL COUNT 4.73 10^6/uL (4.2-5.4); WHITE BLOOD CELL COUNT,WBC 9.9 10^3/uL (5.0-10.0)
[2024-12-17] MEDS: Iopamidol 612 MG/ML 100 ML Bottle IVPUSH ONE (12:12)
[2024-12-17] MEDS: HYDROmorphone 1 MG/ML Syringe IVPUSH ONE (12:14)
[2024-12-17] MEDS: Ondansetron 4 MG/2 ML SDV IVPUSH ONE (12:19)
[2024-12-17 12:25] LABS: A/G RATIO 0.9; ALANINE AMINOTRANSFERASE,ALT 15 U/L (14-59); ALBUMIN 3.7 g/dL (3.4-5.0); ALKALINE PHOSPHATASE 89 U/L (46-116); ANION GAP 15.9 mEq/L (7-13); ASPARTATE AMNIOTRANSFERASE,AST 12 U/L (15-37); BILIRUBIN TOTAL 0.8 mg/dL (0.2-1.0); BLOOD UREA NITROGEN,BUN 14 mg/dL (7-18); BUN/CREATININE RATIO 18.4 (No establ ref range); CALCIUM 8.4 mg/dL (8.5-10.1); CARBON DIOXIDE,CO2 27 mmol/L (21-32); CHLORIDE,CL 100 mmol/L (98-107); CREATININE 0.76 mg/dL (0.55-1.02); EST CRCL DRUG DOSING (CG) 82.42 mL/min; GLUCOSE RANDOM 161 mg/dL (70-99); POTASSIUM,K 3.9 mmol/L (3.5-5.1); PROTEIN TOTAL,TP 7.8 g/dL (6.4-8.2); SODIUM,NA 139 mmol/L (136-145)
[2024-12-17 12:27] LABS: PROTHROMBIN TIME 10.2 SEC (9.0-12.0); PTT,PARTIAL THROMBOPLSTIN TIME 24.3 SEC (22.0-34.0)
[2024-12-17 12:28] LABS: C-REACTIVE PROTEIN < 0.50 ng/dL (<=0.50); ESTIMATED GFR 100 mL/min (>=60)
[2024-12-17 12:29] LABS: LACTIC ACID 0.8 mmol/L (0.4-2.0)
[2024-12-17] MEDS: metroNIDAZOLE 250 MG Tab PO ONE (14:04)
[2024-12-17] MEDS: Ibuprofen 800 MG Tab PO ONE (14:04)
[2024-12-17] MEDS: Doxycycline Monohydrate 100 MG Cap PO ONE (14:04)
[2024-12-17] MEDS: cefTRIAXone 1 GM Vial IVPUSH ONE (14:04)
[2024-12-19 11:42] LABS: C.TRACHOMATIS BY TMA Negative (Negative); M GENITALIUM Negative (Negative); M GENITALIUM SOURCE Urine; N.GONORRHOEAE BY TMA Negative (Negative); SOURCE Urine
== END 2024-12-17 14:19 | disposition home or self-care (01) ==
LOC: DL.ED 11:34
DX: N73.6 Female pelvic peritoneal adhesions (postinfective) (principal); R32 Unspecified urinary incontinence; R19.5 Other fecal abnormalities; I10 Essential (primary) hypertension; E78.00 Pure hypercholesterolemia, unspecified; E11.9 Type 2 diabetes mellitus without complications; Z88.5 Allergy status to narcotic agent; Z88.8 Allergy status to other drugs, medicaments and biological substances; Z79.4 Long term (current) use of insulin; Z79.899 Other long term (current) drug therapy; Z79.84 Long term (current) use of oral hypoglycemic drugs; Z90.49 Acquired absence of other specified parts of digestive tract; Z90.710 Acquired absence of both cervix and uterus
CPT/HCPCS: 36415; 74177; 80053; 81001; 83605; 84145; 85025; 85610; 85730; 86140; 87040; 87491; 87563; 87591; 96374; 96375; 99284-25; A9270-GY; J0696; J1171; J2405; Q9967

== ENCOUNTER 2025-04-09 18:58 | Emergency (ER) | payer BC, MEDICAID ==
[2025-04-09 19:31] LABS: BASOPHILS PERCENT AUTO 0.3 % (0.0-1.0); EOSINOPHILS PERCENT AUTO 1.4 % (1.0-3.0); HEMATOCRIT 41.1 % (37.0-47.0); HEMOGLOBIN 13.3 g/dL (12.0-16.0); LYMPHOCYTES PERCENT AUTO 27.7 % (20.5-50.1); MEAN CORPUSCULAR HEMOGLOBIN 26.7 pg (27.0-34.0); MEAN CORPUSCULAR HGB CONC 32.4 g/dL (33.0-35.0); MEAN CORPUSCULAR VOLUME 82.4 fL (80-100); MONOCYTES PERCENT AUTO 5.5 % (2-8); NEUTROPHILS PERCENT AUTO 65.1 % (42.2-75.2); PLATELET COUNT,PLT 415 10^3/uL (150-450); RED BLOOD CELL COUNT 4.99 10^6/uL (4.2-5.4); WHITE BLOOD CELL COUNT,WBC 9.8 10^3/uL (5.0-10.0)
[2025-04-09] MEDS: Ketorolac 30 MG/ML SDV IVPUSH ONE (19:32)
[2025-04-09 19:44] LABS: HEMOGLOBIN A1C 6.3 % (<5.7)
[2025-04-09 19:56] LABS: LACTIC ACID 1.5 mmol/L (0.4-2.0)
[2025-04-09 20:03] LABS: A/G RATIO 0.9; ANION GAP 12.2 mEq/L (7-13); BILIRUBIN TOTAL 0.5 mg/dL (0.2-1.0); BUN/CREATININE RATIO 16.5 (No establ ref range); CALCIUM 9.2 mg/dL (8.5-10.1); CREATININE 0.85 mg/dL (0.55-1.02); EST CRCL DRUG DOSING (CG) 82.99 mL/min; MAGNESIUM 2.1 mg/dL (1.8-2.4); POTASSIUM,K 4.2 mmol/L (3.5-5.1); PROTEIN TOTAL,TP 8.3 g/dL (6.4-8.2)
[2025-04-09 20:15] LABS: AMPHETAMINES,URINE NEGATIVE (NEGATIVE); BARBITURATES,URINE NEGATIVE (NEGATIVE); BENZODIAZEPINE,URINE NEGATIVE (NEGATIVE); MDMA (ECSTASY), URINE NEGATIVE (NEGATIVE); METHADONE,URINE NEGATIVE (NEGATIVE); METHAMPHETAMINES,URINE NEGATIVE (NEGATIVE); OPIATES,URINE NEGATIVE (NEGATIVE); OXYCODONE,URINE NEGATIVE (NEGATIVE); PHENCYCLIDINE,URINE NEGATIVE (NEGATIVE); TCA,URINE NEGATIVE (NEGATIVE)
[2025-04-09] MEDS: Acetaminophen 500 MG Tab PO ONE (20:16)
== END 2025-04-09 20:21 | disposition left against medical advice (07) ==
LOC: DL.ED 18:58 → EEVIPCON 18:58 → DL.ED 20:21
DX: L03.031 Cellulitis of right toe (principal); I10 Essential (primary) hypertension; E66.9 Obesity, unspecified; E11.40 Type 2 diabetes mellitus with diabetic neuropathy, unspecified; E78.00 Pure hypercholesterolemia, unspecified; J45.909 Unspecified asthma, uncomplicated; Z88.5 Allergy status to narcotic agent; Z88.8 Allergy status to other drugs, medicaments and biological substances; Z79.899 Other long term (current) drug therapy; Z79.4 Long term (current) use of insulin; Z79.891 Long term (current) use of opiate analgesic; Z86.16 Personal history of COVID-19; Z90.49 Acquired absence of other specified parts of digestive tract; Z68.26 Body mass index [BMI] 26.0-26.9, adult
CPT/HCPCS: 36415; 80053; 80305; 81025; 83036; 83605; 83735; 85025; 87040; 96374; 99284; J1885; 99283

== ENCOUNTER 2025-05-30 12:52 | Emergency (ER) | payer BC | END 2025-05-30 14:07 | disposition home or self-care (01) | LOC: DL.ED 12:52 | DX: L03.211 Cellulitis of face (principal); L02.01 Cutaneous abscess of face; I10 Essential (primary) hypertension; E78.00 Pure hypercholesterolemia, unspecified; E11.40 Type 2 diabetes mellitus with diabetic neuropathy, unspecified; Z79.84 Long term (current) use of oral hypoglycemic drugs; E66.9 Obesity, unspecified; Z90.49 Acquired absence of other specified parts of digestive tract; Z88.6 Allergy status to analgesic agent; Z88.5 Allergy status to narcotic agent; Z88.1 Allergy status to other antibiotic agents; Z68.26 Body mass index [BMI] 26.0-26.9, adult | CPT/HCPCS: 87070; 87077; 87186; 99283 ==

== ENCOUNTER 2025-11-02 10:49 | Emergency (ER) | payer BC, MEDICAID ==
[2025-11-02] MEDS: Dexamethasone 4 MG/ML SDV IM ONE (11:31)
[2025-11-02] MEDS: diphenhydrAMINE 50 MG/ML SDV IM ONE (11:53)
[2025-11-02] MEDS ORDERED: Sodium Chloride 0.9% 10 ML Syringe FLUSH PRN (12:34)
[2025-11-02 13:06] LABS: BASOPHILS PERCENT AUTO 0.2 % (0.0-1.0); EOSINOPHILS PERCENT AUTO 1.1 % (1.0-3.0); LYMPHOCYTES PERCENT AUTO 27.8 % (20.5-50.1); MONOCYTES PERCENT AUTO 6.0 % (2-8); NEUTROPHILS PERCENT AUTO 64.9 % (42.2-75.2); PLATELET COUNT,PLT 328 10^3/uL (150-450); RED BLOOD CELL COUNT 4.97 10^6/uL (4.2-5.4); WHITE BLOOD CELL COUNT,WBC 6.5 10^3/uL (5.0-10.0)
[2025-11-02 13:25] LABS: A/G RATIO 0.8; ALANINE AMINOTRANSFERASE,ALT 33 U/L (14-59); ASPARTATE AMNIOTRANSFERASE,AST 24 U/L (15-37); BILIRUBIN TOTAL 0.6 mg/dL (0.2-1.0); BLOOD UREA NITROGEN,BUN 11 mg/dL (7-18); CARBON DIOXIDE,CO2 28 mmol/L (21-32); CHLORIDE,CL 106 mmol/L (98-107); CREATININE 0.74 mg/dL (0.55-1.02); ESTIMATED GFR 102 mL/min (>=60); GLUCOSE RANDOM 118 mg/dL (70-99); POTASSIUM,K 3.6 mmol/L (3.5-5.1); PROTEIN TOTAL,TP 7.8 g/dL (6.4-8.2); SODIUM,NA 142 mmol/L (136-145)
[2025-11-02 13:26] LABS: HCG QUALITATIVE,SERUM NEGATIVE (NEGATIVE)
[2025-11-02 13:28] LABS: LACTIC ACID 1.3 mmol/L (0.4-2.0)
== END 2025-11-02 14:12 | disposition home or self-care (01) ==
LOC: DL.ED 10:49
DX: M54.32 Sciatica, left side (principal); I10 Essential (primary) hypertension; E11.40 Type 2 diabetes mellitus with diabetic neuropathy, unspecified; E66.9 Obesity, unspecified; J45.909 Unspecified asthma, uncomplicated; Z79.899 Other long term (current) drug therapy; Z90.49 Acquired absence of other specified parts of digestive tract; Z90.710 Acquired absence of both cervix and uterus; Z88.8 Allergy status to other drugs, medicaments and biological substances; Z88.5 Allergy status to narcotic agent; Z76.5 Malingerer [conscious simulation]
CPT/HCPCS: 36415; 80053; 83605; 83735; 84703; 85025; 86140; 96372; 99284; J1100; J1200